=== PATIENT | male | born 2000 | race Caucasian/White ===

== ENCOUNTER 2020-05-28 20:57 | Emergency (ER) | payer OTHER, SELFPAY ==
[2020-05-28 20:57] VITALS: BP 129/79; PULSE 66; RESP 18; TEMP 36.4; O2SAT 100; BMI 27.8
--- NOTE | 2020-05-28 21:07 | RAD_ITS ---
HISTORY: patient with lac to left 2nd and 3rd finger from saw. pt's fingers are fanned the opposite way. ADDITIONAL HISTORY: None provided. EXAMINATION/TECHNIQUE: XR Hand Min 3 Views Left Number of images including paperwork: 3 COMPARISON: None FINDINGS: BONES: Tiny hyperdensity in the soft tissues adjacent to the distal tuft of the second finger, probable avulsion fracture fragment. JOINTS: No subluxation. SOFT TISSUES: Soft tissue swelling and irregularity of the distal second and third fingers. RAD/Hand Min 3 Views IMPRESSION: Soft tissue injuries to the distal second and third fingers with probable small avulsion fracture of the second finger distal phalanx. Differential diagnosis includes small foreign body. at 2140 Reported and signed by: Gali Roberts MD Electronically Signed: Gali Roberts MD at 21:49 EST Tel , Service support ,
--- NOTE | 2020-05-28 21:08 | ED.DCSUM_ITS ---
History of Present Illness Chief Complaint: Laceration Informant: Patient Onset: Today Context: Sudden Onset Timing: Continuous Current Severity: Moderate Maximum Severity: Moderate Narrative: Patient is a 19-year-old male who is otherwise healthy with up-to-date immunization who presents to the emergency department laceration to left second and third fingers. Patient was using a skill saw on a camper. The saw caught, and change directions quickly. He ended up lacerating the distal tips of his left third and second finger on the palmar aspect. He placed ice immediately. He is otherwise healthy. He is right-hand dominant at baseline. 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 He denies other injury. He is otherwise been in his normal state of health. Prior similar symptoms: No Recent Illness/Hospitalization: No Past Medical History - Allergies and Home Meds Allergies/Adverse Reactions: Allergies No Known Allergies Allergy (Verified 05/28/20 21:27) Prior records reviewed: Yes Past Medical History: None Surgical History: no surgical history Smoking Status: Never smoker Review of Systems General: Denies: Chills, Fever, Sweats Eyes: Denies: Visual changes - bilaterally, Diplopia ENT: Denies: Rhinorrhea, Sore throat Cardiovascular: Denies: Chest pain, Palpitations Respiratory: Denies: Dyspnea, Cough, Dyspnea on exertion Gastrointestinal: Denies: Abdominal pain, Nausea, Vomiting, Diarrhea, Melena, Hematochezia Genitourinary: Denies: Dysuria, Hematuria, Frequency Musculoskeletal: Denies: Back pain, Extremity Pain Skin: Denies: Rash, Wounds Neurological: Denies: Headache, Weakness, Numbness Physical Exam Vital Signs/Narrative: Vital Signs Temp Pulse Resp BP Pulse Ox 05/28/20 20:57 97.6 F L 66 18 129/79 H 100 Inital Vital Signs reviewed: Yes General: Well nourished, Well developed, No Acute Distress Head: Normocephalic, Atraumatic Eyes: Perrl, EOMI ENT: Moist mucous membranes, No rhinorrhea Neck: Supple, Nontender Cardiovascular: Regular rate, Regular rhythm, No murmurs Respiratory: No distress, CTA bilaterally, Chest nontender Abdomen: Soft, Nontender, Nondistended, Normal bowel sounds Back: Nontender, Normal Inspection Extremities: - - Patient has 2 space 2 cm lacerations on both the left second and third distal tips. They are near the DIP joint. Flexion of profundus and superficialis are preserved. Two-point discrimination on the left second is preserved. Two-point discrimination both medial and laterally on the left third is Skin: Normal color, No rash Neurological: Alert, Oriented x3, Cranial nerves II-XII grossly intact, Normal Strength, Normal Sensation Psychological: Normal affect, Normal Mood Diagnostic/Tx/Re-eval Clinical Impression(s) from Imaging Studies Hand X-Ray 05/28/20 21:07 IMPRESSION: Soft tissue injuries to the distal second and third fingers with probable small avulsion fracture of the second finger distal phalanx. Differential diagnosis includes small foreign body. at 2149 Reported and signed by: Gali Roberts MD Electronically Signed: Gali Roberts MD at 21:49 EST Tel , Service support , - Medical Decision Making The patient presents with complex injury to the left index and third finger. He does have diminished two-point sensation on both medial lateral aspect of the third finger. His cap refill is normal. X-rays were obtained. There is questionable avulsion of the distal tip of the second. Patient was treated with Keflex. His tetanus is up-to-date. The patient underwent digital block with bupivacaine of the second and third finger. A total of 15 cc was used. Once anesthesia was achieved, the wounds were copiously irrigated. Repair was started on the third digit. Turnicot was placed. It was examined. The laceration is approximately 3 cm in total length. The tendon was intact. There was no significant retained foreign body after irrigation. The tissue is macerated and had to be debrided. It was closed with approximately 14 simple 5- 0 interrupted suture. I then started repair of the second finger. This laceration is also approximately 3 cm in total length. Again, turnicot was placed. The wound was examined. The tendon was intact. There was no evidence of foreign body. There is no pulsatile bleeding. This was more of a stellate laceration. Debridement had to be done. This was repaired with 12 simple 5- interrupted suture. After turnicot removal, there was good cap refill. The patient tolerated this. He was placed in bacitracin dressing with tube gauze. He will be kept on antibiotics and oral analgesics. He will be given hand surgery follow-up. He was counseled on local wound care and reasons to return. He will be discharged home. Impression 1. Complex laceration left second and third digits with repair 2. Digital block of left second and third digit ED Disposition - Plan for ED Patient: Instructions: ED Laceration Hand Prescriptions: Cephalexin [Keflex] 500 mg PO Q6 #40 cap Prescription Printed Hydrocodone Bitart/Apap 5-325 [[place] 5MG-325MG] 1 tab PO Q6H PRN PRN 3 Days #10 tab PRN Reason: Pain Prescription Printed Referrals: Tez Drew MD [STAFF PHYSICIAN] -
[2020-05-28] MEDS: Bupivacaine Mpf 0.5% 30 ML VIAL 20 ML INFILT (21:28)
[2020-05-28] MEDS: Cephalexin 250 MG Capsule 500 MG PO (22:57)
== END 2020-05-28 23:04 | disposition home or self-care (01) ==
PROVIDERS: Emergency Provider Emergency Medicine
DX: S61.213A Laceration without foreign body of left middle finger without damage to nail, initial encounter (principal); S61.211A Laceration without foreign body of left index finger without damage to nail, initial encounter; W29.3XXA Contact with powered garden and outdoor hand tools and machinery, initial encounter; Y93.89 Activity, other specified; Y92.89 Other specified places as the place of occurrence of the external cause; Y99.9 Unspecified external cause status
CPT/HCPCS: 13132; 73130; 99282